=== PATIENT | female | born 1980 | race Caucasian/White ===

== ENCOUNTER → 2016-05-20 | Outpatient (CLI) | payer OTHER ==
--- NOTE | 2016-05-20 22:10 | MR ---
EXAMINATION TYPE: MR lumbar spine wo con DATE OF EXAM: 05/20/2016 8:20 PM COMPARISON: NONE HISTORY: LBP, left side x 3 months, no trauma/surgery TECHNIQUE: T1 and T2 axial and sagittal images of the lumbar spine are submitted. FINDINGS: There is no abnormal signal seen within the visualized spinal cord or paraspinal soft tissu es. At L1-2 there is no evidence of degenerative disc disease, disc herniation, canal stenosis, or forami nal encroachment. At L2-3 there is no evidence of degenerative disc disease, disc herniation, canal stenosis, or forami nal encroachment. At L3-4 there is no evidence of degenerative disc disease, disc herniation, canal stenosis, or forami nal encroachment. At L4-5 there is disc desiccation with no focal herniation or canal stenosis. Neural foramina patent. At L5-S1 there is disc desiccation with left paracentral small disc herniation and mild effacement of thecal sac. No foraminal encroachment. IMPRESSION: 1. At L5-S1 there is left paracentral small disc herniation and mild effacement of thecal sac. No for aminal encroachment.
== END | disposition home or self-care (01) ==
LOC: RADMRIMAIN 18:16
PROVIDERS: ATTEND Psychiatry & Neurology Neurology
DX: M51.27 Other intervertebral disc displacement, lumbosacral region (principal)
CPT/HCPCS: 72148

== ENCOUNTER → 2016-07-30 | Outpatient (CLI) | payer OTHER ==
--- NOTE | 2016-07-30 16:32 | MR ---
MRI of the brain with and without contrast HISTORY: Headaches. TECHNIQUE: T1-weighted sagittal, T2, FLAIR, and diffusion axial, postcontrast T1 axial and coronal vi ews of the brain are submitted. CONTRAST: 10 mL MultiHance COMPARISON: 07/02/2015 FINDINGS: There is no evidence of acute ischemia. The ventricles, basal cisterns, and sulci overlying the co nvexities are consistent with the patient's age. Craniocervical junction maintained. Sella turcica has a normal appearance. 7 mm cyst in the subcutaneous tissues of the right facial soft tissues noted. Likely related to sebac eous cysts. There is a stable appearing mass involving the left CPA angle with extension into the internal audito ry canal. Differential diagnosis would include a meningioma or acoustic neuroma. Measures 1.8 x 1.4 c m. WHITE MATTER: There are proximally 60 areas of abnormal signal seen scattered throughout the white matter bilateral ly. No callosal lesions. No lesions perpendicular to the ventricle. No enhancing lesions. Artifact no skyler in the posterior fossa. All measure 5 mm or less. Please is stable in size, number and morphology IMPRESSION: 1. Stable white matter lesions unchanged in size, morphology or number from the previous exam. Overal l nonspecific appearance can be seen with demyelinating process including a mass. Hypertension, migra ine headaches or sarcoidosis or remote tiny areas of microvascular ischemia also in the differential diagnosis. 2. 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 Acoustic schwanno ma or meningioma most likely etiologies. This appears stable dating back to 2010 MRI.
== END | disposition home or self-care (01) ==
LOC: RADMRIMAIN 14:49
PROVIDERS: ATTEND Psychiatry & Neurology Neurology
DX: R90.82 White matter disease, unspecified (principal); G93.9 Disorder of brain, unspecified
CPT/HCPCS: 70553; A9577

== ENCOUNTER → 2017-08-07 | Outpatient (CLI) | payer OTHER ==
--- NOTE | 2017-08-08 12:56 | MR ---
EXAMINATION TYPE: MR brain/cspine wo/w DATE OF EXAM: 08/07/2017 COMPARISON: 07/30/2016 HISTORY: Patient having left sided neck pain. TECHNIQUE: Multiplanar, multisequence images of the brain and brainstem is performed without and with IV contras t, utilizing 4.5 mL intravenous Gadavist . FINDINGS: Diffusion weighted images demonstrate no evidence of a recent infarct or other diffusion ab normality. There is a large left cerebellar pontine enhancing mass measuring 2.3 cm extending intracanicular. Midline structures demonstrate normal morphology. Cerebellar tonsils are low-lying in position but st able. 7 mm cyst in the subcutaneous tissues of the right facial soft tissues noted. Likely related t o sebaceous cysts. WHITE MATTER: There are approximately 16 areas of abnormal signal seen scattered throughout the white matter bilate rally. No callosal lesions. No lesions perpendicular to the ventricle. No enhancing lesions. All measure 5 mm or less. Lesions are stable in size, number and morphology. IMPRESSION: 1. Stable white matter lesions unchanged in size, morphology or number from the previous exam. Overal l nonspecific appearance can be seen with demyelinating process including a mass. Hypertension, migra ine headaches or sarcoidosis or remote tiny areas of microvascular ischemia also in the differential diagnosis. 2. 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 Acoustic schwanno ma or meningioma most likely etiologies. This appears stable dating back to 2010 MRI. 3 stable low-ly ing cerebellar tonsils. MRI CERVICAL SPINE: CLINICAL HISTORY: Pain TECHNIQUE: Multiplanar, multisequence imaging of the cervical spine is performed without and with IV contrast, 4.5 cc of Gadavist was given intravenously. COMPARISON: 08/10/2014 FINDINGS: Imaging is degraded by patient motion artifact. Thyroid tissue somewhat heterogeneous correlate clini kenzie. Sagittal images of the cervical spine show the craniocervical junction to appear within normal limits . The cervical and upper thoracic spinal cord is normal in course, caliber, and signal. Alignment is straightened on sagittal images and there is levoconvex scoliosis centered in the upper thoracic spine on coronal images. There is artifact from prior surgery at C5-C7 levels. Vertebral body and disc space heights above and below level of surgery are within normal limits. No s ignificant posterior disc herniation are seen on sagittal images. No abnormal postcontrast enhancement is seen. Axial images show the C2-C3 and C3-4 within normal limits. At C4-C5 there is stable minimal central disc bulging but no canal stenosis or foraminal encroachment . At the C5-C6 level show postsurgical changes with no definite disc herniation, or canal stenosis. Pat porschent noted mild neural foramina is not as well-seen on today's exam. No significant change from prior study is seen. Axial images at C6-C7 level show artifact surgical hardware otherwise are within normal limits. Axial images at C7-T1 level are within normal limits. IMPRESSION: 1. Postsurgical changes C5-C7 level stable with no definite canal stenosis or disc herniation.. No n ew significant finding identified. 2. Low-lying cerebellar tonsils. Findings stable. 3. Stable left cerebellopontine angle mass.
== END | disposition home or self-care (01) ==
LOC: RADMRIMAIN 20:03
PROVIDERS: ATTEND Psychiatry & Neurology Neurology
DX: R90.89 Other abnormal findings on diagnostic imaging of central nervous system (principal); D33.3 Benign neoplasm of cranial nerves; G93.9 Disorder of brain, unspecified; R90.82 White matter disease, unspecified; Z98.890 Other specified postprocedural states
CPT/HCPCS: 70553; 72156; A9581

== ENCOUNTER 2018-05-09 08:33 | Emergency (ER) | payer OTHER ==
[2018-05-09 08:39] VITALS: RESP 18
[2018-05-09] MEDS ORDERED: SODIUM CHLORIDE 0.9% 1,000 ML IV STA ×2 (08:58)
[2018-05-09] MEDS ORDERED: ONDANSETRON 4 MG/2 ML VIAL IVP STA (08:58)
[2018-05-09] MEDS ORDERED: KETOROLAC 30 MG/ML 1 ML VIAL IVP STA (08:58)
[2018-05-09] MEDS ORDERED: PANTOPRAZOLE 40 MG/10 ML VIAL IVP STA (08:58)
--- NOTE | 2018-05-09 09:51 | ED ---
General Adult HPI - General Chief complaint: Abdominal Pain Stated complaint: pain between ribs, sweats Time Seen by Provider: 05/09/18 08:43 Source: patient, RN notes reviewed, old records reviewed Mode of arrival: ambulatory Limitations: no limitations - History of Present Illness Initial comments: Patient is a 38-year-old female who presents emergency Department today with complaints of epigastric abdominal pain. Patient reports that the pain woke her up from her sleep. She reports she was a sweat at that time. She's had some episodes of dry heaving. She states she's had history of acid reflux disease. She denies any history of coronary artery disease per denies any associated shortness of breath. She reports that the pain starts in the mid abdomen.symptoms may been exacerbated by her dinner last night which was [employer]. - Related Data Home Medications Medication Instructions Recorded Confirmed Butalb/APAP/Caff 50-325-40Mg 1 tab PO Q4H PRN 05/09/18 05/09/18 [Fioricet 50-325-40] HYDROcodone/APAP 10-325MG [[place] 1 tab PO TID PRN 05/09/18 05/09/18 10-325] Pregabalin [Lyrica] 75 mg PO BID 05/09/18 05/09/18 Previous Rx's Medication Instructions Recorded Famotidine [Pepcid] 20 mg PO BID #20 tablet 05/09/18 Ondansetron Odt [Zofran Odt] 4 mg PO Q8HR PRN #20 tab 05/09/18 Allergies Allergy/AdvReac Type Severity Reaction Status Date / Time Morpholine Analogues Allergy Nausea & Verified 05/09/18 08:58 Vomiting Review of Systems ROS Statement: Those systems with pertinent positive or pertinent negative responses have been documented in the HPI. ROS Other: All systems not noted in ROS Statement are negative. Past Medical History Past Medical History: Asthma History of Any Multi-Drug Resistant Organisms: None Reported Past Surgical History: Tubal Ligation Additional Past Surgical History / Comment(s): neck fusion Past Psychological History: Anxiety, Depression Smoking Status: Current every day smoker Past Alcohol Use History: None Reported Past Drug Use History: Marijuana General Exam - General Exam Comments Initial Comments: 38-year-old female. Alert and oriented 3. Patient is in no significant distress. Limitations: no limitations General appearance: alert, in no apparent distress Head exam: Present: atraumatic, normocephalic, normal inspection Eye exam: Present: normal appearance, PERRL, EOMI. Absent: scleral icterus, conjunctival injection, periorbital swelling ENT exam: Present: normal exam, mucous membranes moist Neck exam: Present: normal inspection. Absent: tenderness, meningismus, lymphadenopathy Respiratory exam: Present: normal lung sounds bilaterally. Absent: respiratory distress, wheezes, rales, rhonchi, stridor Cardiovascular Exam: Present: regular rate, normal rhythm, normal heart sounds. Absent: systolic murmur, diastolic murmur, rubs, gallop, clicks GI/Abdominal exam: Present: soft, normal bowel sounds. Absent: distended, tenderness, guarding, rebound, rigid Extremities exam: Present: normal inspection, full ROM, normal capillary refill. Absent: tenderness, pedal edema, joint swelling, calf tenderness Back exam: Present: normal inspection Neurological exam: Present: alert, oriented X3, CN II-XII intact Psychiatric exam: Present: normal affect, normal mood Course Vital Signs 05/09/18 05/09/18 05/09/18 08:34 11:00 11:30 Temperature 98.0 F Pulse Rate 66 58 L 62 Respiratory 18 16 18 Rate Blood Pressure 110/65 97/55 97/55 O2 Sat by Pulse 97 99 98 Oximetry Medical Decision Making - Lab Data Result diagrams: 05/09/18 10:00 05/09/18 10:00 Lab Results 05/09/18 05/09/18 05/09/18 Range/Units 10:00 10:00 10:00 WBC 10.4 (3.8-10.6) k/uL RBC 4.56 (3.80-5.40) m/uL Hgb 14.4 (11.4-16.0) gm/dL Hct 45.4 (34.0-46.0) % MCV 99.6 (80.0-100.0) fL MCH 31.5 (25.0-35.0) pg MCHC 31.6 (31.0-37.0) g/dL RDW 14.2 (11.5-15.5) % Plt Count 153 (150-450) k/uL Neutrophils % 82 % Lymphocytes % 13 % Monocytes % 3 % Eosinophils % 1 % Basophils % 0 % Neutrophils # 8.5 H (1.3-7.7) k/uL Lymphocytes # 1.3 (1.0-4.8) k/uL Monocytes # 0.3 (0-1.0) k/uL Eosinophils # 0.1 (0-0.7) k/uL Basophils # 0.0 (0-0.2) k/uL PT 10.2 (9.0-12.0) sec INR 0.9 (<1.2) APTT 25.8 (22.0-30.0) sec Sodium 143 (137-145) mmol/L Potassium 5.2 H (3.5-5.1) mmol/L Chloride 115 H (98-107) mmol/L Carbon Dioxide 24 (22-30) mmol/L Anion Gap 4 mmol/L BUN 12 (7-17) mg/dL Creatinine 0.51 L (0.52-1.04) mg/dL Est GFR (CKD-EPI)AfAm >90 (>60 ml/min/1.73 sqM) Est GFR (CKD-EPI)NonAf >90 (>60 ml/min/1.73 sqM) Glucose 111 H (74-99) mg/dL Calcium 9.2 (8.4-10.2) mg/dL Total Bilirubin 0.5 (0.2-1.3) mg/dL AST 23 (14-36) U/L ALT 27 (9-52) U/L Alkaline Phosphatase 40 (38-126) U/L Troponin I (0.000-0.034) ng/mL Total Protein 6.8 (6.3-8.2) g/dL Albumin 4.4 (3.5-5.0) g/dL Amylase 63 (30-110) U/L Lipase 63 (23-300) U/L Urine Color Urine Appearance (Clear) Urine pH (5.0-8.0) Ur Specific [place] (1.001-1.035) Urine Protein (Negative) Urine Glucose (UA) (Negative) Urine Ketones (Negative) Urine Blood (Negative) Urine Nitrite (Negative) Urine Bilirubin (Negative) Urine Urobilinogen (<2.0) mg/dL Ur Leukocyte Esterase (Negative) 05/09/18 05/09/18 Range/Units 10:00 11:10 WBC (3.8-10.6) k/uL RBC (3.80-5.40) m/uL Hgb (11.4-16.0) gm/dL Hct (34.0-46.0) % MCV (80.0-100.0) fL MCH (25.0-35.0) pg MCHC (31.0-37.0) g/dL RDW (11.5-15.5) % Plt Count (150-450) k/uL Neutrophils % % Lymphocytes % % Monocytes % % Eosinophils % % Basophils % % Neutrophils # (1.3-7.7) k/uL Lymphocytes # (1.0-4.8) k/uL Monocytes # (0-1.0) k/uL Eosinophils # (0-0.7) k/uL Basophils # (0-0.2) k/uL PT (9.0-12.0) sec INR (<1.2) APTT (22.0-30.0) sec Sodium (137-145) mmol/L Potassium (3.5-5.1) mmol/L Chloride (98-107) mmol/L Carbon Dioxide (22-30) mmol/L Anion Gap mmol/L BUN (7-17) mg/dL Creatinine (0.52-1.04) mg/dL Est GFR (CKD-EPI)AfAm (>60 ml/min/1.73 sqM) Est GFR (CKD-EPI)NonAf (>60 ml/min/1.73 sqM) Glucose (74-99) mg/dL Calcium (8.4-10.2) mg/dL Total Bilirubin (0.2-1.3) mg/dL AST (14-36) U/L ALT (9-52) U/L Alkaline Phosphatase (38-126) U/L Troponin I <0.012 (0.000-0.034) ng/mL Total Protein (6.3-8.2) g/dL Albumin (3.5-5.0) g/dL Amylase (30-110) U/L Lipase (23-300) U/L Urine Color Light Yellow Urine Appearance Clear (Clear) Urine pH 7.0 (5.0-8.0) Ur Specific [place] 1.005 (1.001-1.035) Urine Protein Negative (Negative) Urine Glucose (UA) Negative (Negative) Urine Ketones Negative (Negative) Urine Blood Negative (Negative) Urine Nitrite Negative (Negative) Urine Bilirubin Negative (Negative) Urine Urobilinogen <2.0 (<2.0) mg/dL Ur Leukocyte Esterase Negative (Negative) 05/09/18 10:59 EKG performed at 1018 shows normal sinus rhythm normally she. Ventricular 62 bpm. Was 160 ms. QRS duration 88 ms. QT QTc is 442/448 ms. Disposition Clinical Impression: Epigastric pain, GERD (gastroesophageal reflux disease) Disposition: HOME SELF-CARE Condition: Good Instructions (If sedation given, give patient instructions): Abdominal Pain (ED ) Additional Instructions: Patient has a close follow-up with primary care physician. Take the medication as prescribed. Return to emergency department if any alarming signs or symptoms occur. Prescriptions: Famotidine [Pepcid] 20 mg PO BID #20 tablet Ondansetron Odt [Zofran Odt] 4 mg PO Q8HR PRN #20 tab PRN Reason: Nausea Is patient prescribed a controlled substance at d/c from ED?: No Referrals: Craig Saeed III, MD [Primary Care Provider] - 1-2 days Time of Disposition: 12:07
[2018-05-09 10:15] LABS: Basophils % (A) 0 %; Eosinophils # (A) 0.1 k/uL (0-0.7); Eosinophils % (A) 1 %; HCT 45.4 % (34.0-46.0); HGB 14.4 gm/dL (11.4-16.0); Lymphocytes # (A) 1.3 k/uL (1.0-4.8); Lymphocytes % (A) 13 %; MCH 31.5 pg (25.0-35.0); MCHC 31.6 g/dL (31.0-37.0); MCV 99.6 fL (80.0-100.0); Mean Platelet Volume 7.7; Monocytes # (A) 0.3 k/uL (0-1.0); Monocytes % (A) 3 %; Neutrophils # (A) 8.5 k/uL (1.3-7.7); Neutrophils % (A) 82 %; Platelet Count 153 k/uL (150-450); RBC 4.56 m/uL (3.80-5.40); RDW 14.2 % (11.5-15.5); WBC 10.4 k/uL (3.8-10.6)
[2018-05-09 10:28] LABS: ALT 27 U/L (9-52); AST 23 U/L (14-36); Albumin 4.4 g/dL (3.5-5.0); Alkaline Phosphatase 40 U/L (38-126); Amylase 63 U/L (30-110); Anion Gap 4 mmol/L; Blood Urea Nitrogen 12 mg/dL (7-17); Calcium 9.2 mg/dL (8.4-10.2); Carbon Dioxide 24 mmol/L (22-30); Chloride 115 mmol/L (98-107); Glucose 111 mg/dL (74-99); INR 0.9 (<1.2); Lipase 63 U/L (23-300); Partial Thromboplastin Time 25.8 sec (22.0-30.0); Potassium 5.2 mmol/L (3.5-5.1); Prothrombin Time 10.2 sec (9.0-12.0); Sodium 143 mmol/L (137-145); Total Bilirubin 0.5 mg/dL (0.2-1.3); Total Protein 6.8 g/dL (6.3-8.2)
--- NOTE | 2018-05-09 11:19 | XR ---
EXAMINATION TYPE: XR chest 2V DATE OF EXAM: 05/09/2018 COMPARISON: 09/02/2013 INDICATION: Epigastric pain history of asthma TECHNIQUE: Frontal and lateral views of the chest are obtained. FINDINGS: The heart size is normal. The pulmonary vasculature is normal. The lungs are clear. Anterior cervical fusion is noted IMPRESSION: 1. No acute pulmonary process.
[2018-05-09 11:45] LABS: Appearance,Urine Clear (Clear); Bilirubin,Urine Negative (Negative); Blood,Urine Negative (Negative); Color,Urine Light Yellow; Glucose,Urine (UA) Negative (Negative); Ketones,Urine Negative (Negative); Leukocyte Esterase,Urine Negative (Negative); Nitrite,Urine Negative (Negative); Protein,Urine Negative (Negative); Specific Gravity,Urine 1.005 (1.001-1.035); Urobilinogen,Urine <2.0 mg/dL (<2.0)
[2018-05-09 12:40] VITALS: BP 99/61; PULSE 71; TEMP 98.5
== END 2018-05-09 12:45 | disposition home or self-care (01) ==
LOC: EC 08:33
DX: K21.9 Gastro-esophageal reflux disease without esophagitis (principal); F41.9 Anxiety disorder, unspecified; F17.200 Nicotine dependence, unspecified, uncomplicated; Z88.8 Allergy status to other drugs, medicaments and biological substances; Z79.899 Other long term (current) drug therapy; Z98.1 Arthrodesis status
CPT/HCPCS: 36415; 93005; 80053; 82150; 83690; 84484; 85025; 85610; 85730; 81003; 71046; 99284; 96374; 96375 ×2; 96361 ×3; J2405; J1885; C9113

== ENCOUNTER 2019-02-28 09:31 | Emergency (ER) | payer OTHER ==
[2019-02-28 09:53] VITALS: BP 146/84; PULSE 82; RESP 18; TEMP 97.9
--- NOTE | 2019-02-28 10:23 | ED ---
ENT HPI - General Chief complaint: ENT Stated complaint: lump on neck Time Seen by Provider: 02/28/19 10:02 Source: patient Mode of arrival: ambulatory Limitations: no limitations - History of Present Illness Initial comments: Patient is a 38-year-old female presenting to the emergency Department with complaints of a painful lump on the left side of her neck 3 weeks. Patient states she first noticed a very small bump on the left side of her neck 3 weeks ago and went to her PCP, Dr. Cheek and, for evaluation. It they suggested it was just an inflamed lymph node and to watch it. They did do some lab work which all came back normal. Patient states the lump has been getting bigger and more uncomfortable so she went back to her doctor today and they recommended her going to the ER for further evaluation. Patient denies any fever, chills, cough, chest pain, trouble swallowing. Patient has had no other symptoms the past 3 weeks. Patient has never had anything like this before. Patient has no prior history of thyroid disease or neck injuries or surgeries. Patient has no other complaints at this time. Upon arrival to the ER, vital signs are stable. - Related Data Home Medications Medication Instructions Recorded Confirmed Butalb/APAP/Caff 50-325-40Mg 1 tab PO Q4H PRN 05/09/18 05/09/18 [Fioricet 50-325-40] HYDROcodone/APAP 10-325MG [[place] 1 tab PO TID PRN 05/09/18 05/09/18 10-325] Pregabalin [Lyrica] 75 mg PO BID 05/09/18 05/09/18 Previous Rx's Medication Instructions Recorded Famotidine [Pepcid] 20 mg PO BID #20 tablet 05/09/18 Ondansetron Odt [Zofran Odt] 4 mg PO Q8HR PRN #20 tab 05/09/18 Allergies Allergy/AdvReac Type Severity Reaction Status Date / Time Morpholine Analogues Allergy Nausea & Verified 05/09/18 08:58 Vomiting Review of Systems ROS Statement: Those systems with pertinent positive or pertinent negative responses have been documented in the HPI. ROS Other: All systems not noted in ROS Statement are negative. Past Medical History Past Medical History: Asthma History of Any Multi-Drug Resistant Organisms: None Reported Past Surgical History: Tubal Ligation Additional Past Surgical History / Comment(s): neck fusion Past Psychological History: Anxiety, Depression Smoking Status: Current every day smoker Past Alcohol Use History: None Reported Past Drug Use History: Marijuana General Exam - General Exam Comments Initial Comments: GENERAL: Well-appearing, well-nourished and in no acute distress. HEAD: Atraumatic, normocephalic. EYES: Pupils equal round and reactive to light, extraocular movements intact, sclera anicteric, conjunctiva are normal. ENT: TMs normal, nares patent, oropharynx clear without exudates. Moist mucous membranes. NECK: Normal range of motion, although sore with cervical rotation. Patient has a rather large, approximately 4 cm in diameter, painful lump on the left side of her neck. There is no overlying erythema or discoloration. LUNGS: Breath sounds clear to auscultation bilaterally and equal. No wheezes rales or rhonchi. HEART: Regular rate and rhythm without murmurs, rubs or gallops. ABDOMEN: Soft, nontender, normoactive bowel sounds. No guarding, no rebound. No masses appreciated. : Deferred EXTREMITIES: Normal range of motion, no pitting or edema. No clubbing or cyanosis. NEUROLOGICAL: Cranial nerves II through XII grossly intact. Normal speech, normal gait. PSYCH: Normal mood, normal affect. SKIN: Warm, Dry, normal turgor, no rashes. Limitations: no limitations Course Vital Signs 02/28/19 09:50 Temperature 97.9 F Pulse Rate 82 Respiratory 18 Rate Blood Pressure 146/84 O2 Sat by Pulse 98 Oximetry Medical Decision Making - Medical Decision Making Patient is a 38-year-old female presenting with a painful left-sided neck mass x 3 weeks. No fevers, vital signs are stable. Lab work shows slight leukocytosis at 10.8. C-reactive protein is 25.7. CT of the neck shows diffuse deep soft tissue thickening and multiple ill-defined central necrotic structures. 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 We do not have ENT on-call today so patient will be transferred to [facility] for further management/workup. Patient is agreeable with this plan of care. Patient will be given dose of Rocephin before discharge. Case was discussed in detail with Dr. Obrien who agrees with this plan of care. - Lab Data Result diagrams: 02/28/19 10:30 02/28/19 10:30 Lab Results 02/28/19 02/28/19 02/28/19 Range/Units 10:30 10:30 10:30 WBC 10.8 H (3.8-10.6) k/uL RBC 4.79 (3.80-5.40) m/uL Hgb 15.7 (11.4-16.0) gm/dL Hct 47.3 H (34.0-46.0) % MCV 98.7 (80.0-100.0) fL MCH 32.7 (25.0-35.0) pg MCHC 33.1 (31.0-37.0) g/dL RDW 13.7 (11.5-15.5) % Plt Count 260 (150-450) k/uL Neutrophils % 63 % Lymphocytes % 28 % Monocytes % 5 % Eosinophils % 1 % Basophils % 1 % Neutrophils # 6.8 (1.3-7.7) k/uL Lymphocytes # 3.0 (1.0-4.8) k/uL Monocytes # 0.6 (0-1.0) k/uL Eosinophils # 0.1 (0-0.7) k/uL Basophils # 0.1 (0-0.2) k/uL ESR 41 H (0-20) mm/hr Sodium 142 (137-145) mmol/L Potassium 4.4 (3.5-5.1) mmol/L Chloride 107 (98-107) mmol/L Carbon Dioxide 26 (22-30) mmol/L Anion Gap 9 mmol/L BUN 9 (7-17) mg/dL Creatinine 0.50 L (0.52-1.04) mg/dL Est GFR (CKD-EPI)AfAm >90 (>60 ml/min/1.73 sqM) Est GFR (CKD-EPI)NonAf >90 (>60 ml/min/1.73 sqM) Glucose 96 (74-99) mg/dL Calcium 9.8 (8.4-10.2) mg/dL Total Bilirubin 0.4 (0.2-1.3) mg/dL AST 27 (14-36) U/L ALT 22 (9-52) U/L Alkaline Phosphatase 83 (38-126) U/L C-Reactive Protein 25.7 H (<10.0) mg/L Total Protein 8.2 (6.3-8.2) g/dL Albumin 4.8 (3.5-5.0) g/dL Heterophile Antibody Negative (Negative) Disposition Clinical Impression: Mass of left side of neck Disposition: OTHER INSTITUTION NOT DEFINED Condition: Stable Additional Instructions: Go straight to [facility] ER as discussed. Is patient prescribed a controlled substance at d/c from ED?: No Referrals: Craig Saeed III, MD [Primary Care Provider] - 1-2 days - Out of Hospital Transfer - Req. Specs Out of Hospital Transfer - Requested Specifics: Other Emergency Center ([facility])
[2019-02-28 10:39] LABS: Basophils # (A) 0.1 k/uL (0-0.2); Basophils % (A) 1 %; Eosinophils # (A) 0.1 k/uL (0-0.7); Eosinophils % (A) 1 %; HCT 47.3 % (34.0-46.0); HGB 15.7 gm/dL (11.4-16.0); Lymphocytes % (A) 28 %; MCH 32.7 pg (25.0-35.0); MCHC 33.1 g/dL (31.0-37.0); MCV 98.7 fL (80.0-100.0); Mean Platelet Volume 7.1; Monocytes # (A) 0.6 k/uL (0-1.0); Monocytes % (A) 5 %; Neutrophils # (A) 6.8 k/uL (1.3-7.7); Neutrophils % (A) 63 %; Platelet Count 260 k/uL (150-450); RBC 4.79 m/uL (3.80-5.40); RDW 13.7 % (11.5-15.5); WBC 10.8 k/uL (3.8-10.6)
[2019-02-28 11:01] LABS: ALT 22 U/L (9-52); AST 27 U/L (14-36); African American GFR (CKD) >90 (>60 ml/min/1.73 sqM); Albumin 4.8 g/dL (3.5-5.0); Alkaline Phosphatase 83 U/L (38-126); Anion Gap 9 mmol/L; Blood Urea Nitrogen 9 mg/dL (7-17); C Reactive Protein 25.7 mg/L (<10.0); Calcium 9.8 mg/dL (8.4-10.2); Carbon Dioxide 26 mmol/L (22-30); Chloride 107 mmol/L (98-107); Glucose 96 mg/dL (74-99); Non-African American GFR(CKD) >90 (>60 ml/min/1.73 sqM); Potassium 4.4 mmol/L (3.5-5.1); Sodium 142 mmol/L (137-145); Total Bilirubin 0.4 mg/dL (0.2-1.3); Total Protein 8.2 g/dL (6.3-8.2)
--- NOTE | 2019-02-28 11:19 | CT ---
EXAMINATION TYPE: CT soft tissue neck w con DATE OF EXAM: 02/28/2019 HISTORY: Left sided painful lump x 3 weeks. COMPARISON: NONE CT DLP: 144.5 mGycm. Automated Exposure Control for Dose Reduction was Utilized. TECHNIQUE: CT scan of the neck is performed with IV Contrast, patient injected with 100 mL of Isovue 300, axial images are obtained, coronal and sagittal reformatted images are reviewed. FINDINGS: Airway: Slightly deviated to the right. Parotid/submandibular glands: No gross abnormality seen. Carotid/Vascular Structures: As detailed below in other section there are multiple questionable the c ommon carotid arteries in the tibial arteries appear patent as do the visualized portions of the cerv ical internal carotid arteries. Contrast images demonstrate partially calcified structure within the left internal auditory canal. Current primary differential diagnosis is for meningioma given the calc ifications. MRI brain is recommended with contrast for further evaluation. Osseous Structures: Postsurgical change of the cervical spine is noted. Mild mucosal thickening of th e maxillary and ethmoid sinuses and hypoplasia of the left frontal sinus. Straightening of the usual cervical lordosis is seen. Levoscoliosis of the cervical thoracic junction. Other: There is asymmetric soft tissue swelling of the left neck in comparison to the right predomina ntly deep to the sternocleidomastoid. This begins at the inferior aspect of the parapharyngeal space and extends inferiorly to the mid thyroid gland. No apparent extension seen into the mediastinum. The re are questionable filling defects in the left jugular vein such as on image 45 and 47 as well as im age 52 and 55. The left jugular vein is diminutive in size in comparison the right such as on image 6 0. There are multiple ill-defined structures deep to the sternocleidomastoid but superficial to the c ommon carotid artery. These are centrally hypoattenuated in comparison to represent necrotic lymph no lyndsey or small abscesses. These measure up to 1.3 x 1.2 cm on image 50. The trachea is very mildly melida ated to the right. Mild emphysematous changes are seen in the lung apices. Right maxillary hypoattenuated lesion contigu ous with the skin surface likely represents a sebaceous cyst measuring 1.0 cm. IMPRESSION: 1. Diffuse deep soft tissue thickening and multiple ill-defined centrally necrotic structures, possib ly small abscesses or necrotic lymph nodes with subsequent mild rightward tracheal deviation. 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 No current extension into the mediastinum is seen. 2. Partially calcified extra-axial mass at the left cerebellar pontine angle extending towards the in ternal auditory canal is currently favored to represent a meningioma given the calcifications althoug h other etiologies are possible and further characterization with enhanced MR of the brain is recomme nded.
[2019-02-28 11:38] LABS: Erythrocyte Sedimentation Rate 41 mm/hr (0-20)
[2019-02-28] MEDS ORDERED: cefTRIAXone IN SWFI 1,000 MG/10 ML SYRINGE IVP STA (11:46)
== END 2019-02-28 12:19 | disposition other institution (70) ==
LOC: EC 09:31
DX: R22.1 Localized swelling, mass and lump, neck (principal); M54.2 Cervicalgia; D72.829 Elevated white blood cell count, unspecified; I96 Gangrene, not elsewhere classified; F17.200 Nicotine dependence, unspecified, uncomplicated; Z88.8 Allergy status to other drugs, medicaments and biological substances
CPT/HCPCS: 36415; 80053; 85652; 85025; 86140; 86308; 70491; 96374; 99284; J0696; Q9967

== ENCOUNTER 2021-02-18 22:48 | Emergency (ER) | payer OTHER ==
[2021-02-19 00:11] VITALS: RESP 18; TEMP 98.4
--- NOTE | 2021-02-19 00:25 | XR ---
EXAMINATION TYPE: XR wrist complete LT DATE OF EXAM: 02/19/2021 COMPARISON: NONE HISTORY: Pain. Fall. TECHNIQUE: 3 views FINDINGS: There is impacted transverse comminuted fracture distal radial metaphysis. Fracture is 1 cm from the wrist joint. There is no dislocation. There is 6 mm posterior displacement of the distal ma fidel fragment. The carpal bones are intact. IMPRESSION: Acute impacted comminuted and displaced fracture distal radius.
[2021-02-19] MEDS ORDERED: HYDROmorphone 1 MG/ML 1 ML SYRINGE IVP STA ×3 (00:36→03:27)
[2021-02-19] MEDS ORDERED: PROPOFOL 10 MG/ML 20 ML VIAL IV ONE (00:43)
--- NOTE | 2021-02-19 02:35 | XR ---
EXAMINATION TYPE: XR wrist limited LT DATE OF EXAM: 02/19/2021 COMPARISON: Today HISTORY: Post reduction TECHNIQUE: 2 views FINDINGS: 2 views were obtained through the cast that show transverse fracture distal radial metaphys is. Fragments are in fairly good apposition and alignment. The carpal bones are intact. IMPRESSION: Satisfactory reduction of the distal radius fracture. 2 mm posterior displacement.
--- NOTE | 2021-02-19 02:49 | ED ---
Upper Extremity HPI - General Chief Complaint: Extremity Injury, Upper Stated Complaint: Fall, Lt Wrist Injury Time Seen by Provider: 02/19/21 00:15 Source: patient, RN notes reviewed Mode of arrival: ambulatory Limitations: no limitations - History of Present Illness Initial Comments: Patient is a 40-year-old female that presents to the emergency department complaining that she injured her left wrist while slipping and falling in the shower. She notes that she fell on outstretched hand. She notes that there is an obvious deformity. She notes she is a pretty significant pain. She was otherwise well-appearing. She denied any numbness or tingling in her left fingers. She denied chest pain shortness of breath headache nausea vomiting diarrhea constipation fever fatigue chills. - Related Data Home Medications Medication Instructions Recorded Confirmed Butalb/APAP/Caff 50-325-40Mg 1 tab PO Q4H PRN 05/09/18 05/09/18 [Fioricet 50-325-40] HYDROcodone/APAP 10-325MG [[place] 1 tab PO TID PRN 05/09/18 05/09/18 10-325] Pregabalin [Lyrica] 75 mg PO BID 05/09/18 05/09/18 Previous Rx's Medication Instructions Recorded Famotidine [Pepcid] 20 mg PO BID #20 tablet 05/09/18 Ondansetron Odt [Zofran Odt] 4 mg PO Q8HR PRN #20 tab 05/09/18 Allergies Allergy/AdvReac Type Severity Reaction Status Date / Time morphine Allergy Nausea & Verified 02/19/21 00:12 Vomiting Morpholine Analogues Allergy Nausea & Verified 05/09/18 08:58 Vomiting Review of Systems ROS Statement: Those systems with pertinent positive or pertinent negative responses have been documented in the HPI. ROS Other: All systems not noted in ROS Statement are negative. Past Medical History Past Medical History: Asthma History of Any Multi-Drug Resistant Organisms: None Reported Past Surgical History: Tubal Ligation Additional Past Surgical History / Comment(s): neck fusion Past Psychological History: Anxiety, Depression Smoking Status: Current every day smoker Past Alcohol Use History: None Reported Past Drug Use History: Marijuana General Exam Limitations: no limitations General appearance: alert, in no apparent distress Head exam: Present: atraumatic, normocephalic, normal inspection Eye exam: Present: normal appearance, PERRL, EOMI. Absent: scleral icterus, conjunctival injection, periorbital swelling ENT exam: Present: normal exam, mucous membranes moist Neck exam: Present: normal inspection Respiratory exam: Present: normal lung sounds bilaterally. Absent: respiratory distress, wheezes, rales, rhonchi, stridor Cardiovascular Exam: Present: regular rate, normal rhythm, normal heart sounds. Absent: systolic murmur, diastolic murmur, rubs, gallop, clicks Left Forearm Wrist exam: Present: tenderness (Over the distal radius), swelling, deformity (Obvious posterior radial deformity). Absent: normal inspection, full ROM (Secondary to pain and obvious deformity), abrasion, laceration, ecchymosis, crepitus, dislocation Neurological exam: Present: alert, oriented X3 Psychiatric exam: Present: normal affect, normal mood Skin exam: Present: warm, dry, intact, normal color. Absent: rash Course Vital Signs 02/19/21 02/19/21 02/19/21 00:08 01:02 01:39 Temperature 98.4 F Pulse Rate 79 71 68 Respiratory 18 18 18 Rate Blood Pressure 134/84 131/77 105/71 O2 Sat by Pulse 98 97 99 Oximetry 02/19/21 02/19/21 02/19/21 02:11 02:20 02:22 Temperature Pulse Rate 77 83 71 Respiratory 18 18 18 Rate Blood Pressure 122/79 106/71 112/87 O2 Sat by Pulse 100 98 98 Oximetry 02/19/21 02/19/21 02:25 02:30 Temperature Pulse Rate 78 73 Respiratory 18 18 Rate Blood Pressure 120/92 120/66 O2 Sat by Pulse 99 96 Oximetry Procedures - [place] Protocol (Time Out) Procedure Performed:: Left radial reduction Performing Provider: Fito Mello Nurse: Pee Mercado Respiratory Therapist: Argelia James Patient Identification (2 identifiers required): Chart, Verbal, Arm Band, Name, Birthdate, Medical Record Number 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: Identity, Site, Procedure, Consent Site: left wrist Site Marked: Yes Site Verified With Patient/Guardian: Yes Final Confirmation: Procedure, Site, Patient Position, Confirmed w/Provider - Orthopedic Joint Reduction Joint #1 Side: left Joint Reduction Location: wrist Analgesia: procedural sedation Technique Used: direct manipulation Post-Reduction Neuro Exam: intact Post-Reduction Vascular Exam: intact Post Reduction X-Ray Obtained: Yes Post Reduction X-Ray Results: reduced Splint Applied: Yes Patient Tolerated Procedure: well - Orthopedic Splinting/Casting Injury #1 Side: left Upper Extremity Injury Location: wrist Upper Extremity Immobilizer: sugar tong splint Medical Decision Making - Medical Decision Making 40-year-old female with fall on outstretched hand complaining of left wrist pain. X-ray left wrist, 1 mg of Dilaudid ordered. X-ray shows a impacted comminuted distal radius fracture with minimal displacement. Propofol was ordered for conscious sedation for joint reduction. Patient tolerated reduction well. Repeat x-ray shows satisfactory reduction. 1 mg of Dilaudid ordered for pain. Patient does take [place] tends at home 3 times a day for chronic pain. Splint applied. Case discussed with Dr. Mello, patient will be referred to orthopedics. - Radiology Data Radiology results: report reviewed, image reviewed X-ray left wrist: Acute impacted comminuted and displaced fracture distal radius. Repeat left wrist x-ray: Satisfactory reduction of the distal radius fracture. 2 mm posterior displacement. Disposition Clinical Impression: Left radial fracture Disposition: HOME SELF-CARE Condition: Stable Instructions (If sedation given, give patient instructions): Wrist Injury (ED) Additional Instructions: Please return to the Emergency Department if symptoms worsen or any other con cerns. Follow-up with primary care 1-2 days. Follow-up with orthopedics as soon as possible for a cast. Continue take at home pain medications as prescribed for pain control. Wear sling throughout the day. Is patient prescribed a controlled substance at d/c from ED?: No Referrals: Craig Saeed III, MD [Primary Care Provider] - 1-2 days Silvia Bolden DO [Doctor of Osteopathic Medicine] - 1-2 days Time of Disposition: 02:49
[2021-02-19 03:35] VITALS: BP 115/91; PULSE 62
== END 2021-02-19 03:35 | disposition home or self-care (01) ==
LOC: EC 22:48
DX: S52.502A Unspecified fracture of the lower end of left radius, initial encounter for closed fracture (principal); J45.909 Unspecified asthma, uncomplicated; F17.200 Nicotine dependence, unspecified, uncomplicated; F12.90 Cannabis use, unspecified, uncomplicated; Z79.899 Other long term (current) drug therapy; W01.0XXA Fall on same level from slipping, tripping and stumbling without subsequent striking against object, initial encounter
CPT/HCPCS: 73100; 73110; 25605; 99284; 96374; 96376 ×2; J1170; J2704